=== PATIENT | female | born 1990 | race Caucasian/White ===

== ENCOUNTER 2018-03-14 00:50 | Emergency (ER) | payer MEDICAID, SELFPAY ==
[2018-03-14 00:51] VITALS: BP 119/78; PULSE 91; RESP 14; TEMP 36.8; O2SAT 97; BMI 29.7
--- NOTE | 2018-03-14 00:56 | ED.DEP ---
ED Disposition - Plan for ED Patient: Chief Complaint: Ear Problem Instructions: ED Otitis Media Acute Adult Prescriptions: Amoxicillin 500 mg PO TID #30 tablet Referrals: Care Physician,No Primary [Primary Care Provider] - Anat Parry MD [STAFF PHYSICIAN] -
--- NOTE | 2018-03-14 01:00 | ED.DCSUM_ITS ---
- ER Visit Summary Date of Service: 03/14/18 Chief Complaint: Right ear pain History of Present Illness: The patient is a 27 F presented with right ear pain. Patient states it started 3 days ago. She has tried ibuprofen at home. She denies any recent swimming. Denies fever. She states the pain radiates to the right side of her neck. No other complaints. Physical Examination: Vitals are stable. Patient is afebrile. Alert no acute distress. HEENT exam pharynx is normal, uvula midline. Right TM erythema and bulging. Left TM is normal. No mastoid tenderness. Neck is supple. No meningismus Lungs are clear and equal bilaterally. Heart is regular rate and rhythm. Abdomen is soft nontender nondistended. Extremities are unremarkable. Skin is warm and dry. No rash Remainder of exam is unremarkable. Emergency Department Course and Treatment: Patient is given amoxicillin. Advised to follow-up with Dr. Parry occupational therapy asst for no doc. Advised return to ED for worsening complaints. Disposition: Discharge home Impression: Right otitis media This note was generated with [employer] dictation software. It may contain incorrect words, spelling, and punctuation that were not noted in review of the chart prior to signing ED Disposition - Plan for ED Patient: Chief Complaint: Ear Problem Instructions: ED Otitis Media Acute Adult Prescriptions: Amoxicillin 500 mg PO TID #30 tablet Referrals: Anat Parry MD [STAFF PHYSICIAN] - Care Physician,No Primary [Primary Care Provider] -
[2018-03-14] MEDS: AMOXICILLIN 500 MG CAPSULE PO (01:04)
== END 2018-03-14 01:29 | disposition home or self-care (01) ==
LOC: ED 01:11
PROVIDERS: Emergency Provider Emergency Medicine
DX: H66.91 Otitis media, unspecified, right ear (principal); Z72.0 Tobacco use
CPT/HCPCS: 99283

== ENCOUNTER 2018-05-02 15:01 | Emergency (ER) | payer MEDICAID, SELFPAY ==
[2018-05-02 15:03] VITALS: BP 120/72; PULSE 83; RESP 17; TEMP 36.9; O2SAT 100; BMI 28.3
--- NOTE | 2018-05-02 15:41 | ED.DCSUM_ITS ---
- ER Visit Summary Date of Service: 05/02/18 Chief Complaint: Laceration posterior left ankle History of Present Illness: The patient is a 27 F who presents with laceration lateral to the left Achilles tendon. She states the screen door hit the back of her ankle. Her last tetanus shot was at the age of 17. She denies paresthesia, anesthesia motors. She states she is able to ambulate. She has no other complaints. Physical Examination: Vital signs noted and are normal. There is a 6 cm laceration lateral the left Achilles tendon. The Achilles tendon is functionally intact. There is no palpable defect. The laceration is beveled and gaping. DP PT pulses are palpable. Test Results: None Emergency Department Course and Treatment: Adacel IM and suture repair of laceration. Wound was prepped draped sterile manner. The wound was anesthetized 1% lidocaine by local infiltration. The wound was irrigated with normal saline. Using 5-0 Ethilon horizontal interrupted sutures and simple interrupted sutures were placed. Treatment Plan: Wound care instructions Disposition: Discharged to home in stable improved condition Impression: 6 cm left posterior ankle laceration This note was generated with [employer] dictation software. It may contain incorrect words, spelling, and punctuation that were not noted in review of the chart prior to signing ED Disposition - Plan for ED Patient: Disposition: Home or Assisted Living Chief Complaint: Laceration Instructions: ED Laceration All Referrals: Care Physician,No Primary [Primary Care Provider] - Apurva Okeefe NP-C [NON-STAFF] - 10-14 Days suture removal Additional Instructions: Clean wound with peroxide and Q-tip 3 times a day then apply bacitracin ointment. Call for appointment to have sutures removed in 14 days.
[2018-05-02] MEDS: Diphth,Pertuss(Acell),Tet Vac 0.5 ML Vial IM (16:03)
== END 2018-05-02 17:08 | disposition home or self-care (01) ==
PROVIDERS: Emergency Provider Emergency Medicine
DX: S91.012A Laceration without foreign body, left ankle, initial encounter (principal); W22.8XXA Striking against or struck by other objects, initial encounter; Y93.9 Activity, unspecified; Y92.9 Unspecified place or not applicable; Y99.9 Unspecified external cause status; Z23 Encounter for immunization; Z72.0 Tobacco use
CPT/HCPCS: 12002; 90471; 90715; 99284

== ENCOUNTER 2018-09-24 17:31 | Emergency (ER) | payer MEDICAID, SELFPAY ==
[2018-09-24 17:31] VITALS: BP 121/71; PULSE 84; RESP 14; TEMP 36.9; O2SAT 98; BMI 27.7
--- NOTE | 2018-09-24 18:26 | ED.VIS.GEN ---
History of Present Illness Chief Complaint: Ear Problem Informant: Patient Onset: Days - 3 Context: Gradual Onset Timing: Continuous Quality: ache/sore Location: left ear, radiating into left jaw and throat Current Severity: Severe Maximum Severity: Severe Worsened by: touching ear Relieved by: nothing Associated Symptoms: decreased hearing left ear Narrative: No recent URI, nasal congestion, fevers or other systemic symptoms. No recent swimming. No discharge from the ear. No injury or foreign bodies to this area. Past Medical History - Allergies and Home Meds Allergies/Adverse Reactions: Allergies No Known Allergies Allergy (Verified 09/24/18 17:34) Primary Care Physician: Care Physician,No Primary [Primary Care Provider] - Past Medical History: None Smoking Status: Current every day smoker Drugs: None Review of Systems General: Denies: Chills, Fever Eyes: Denies: Visual changes - bilaterally, Diplopia ENT: Reports: Left ear pain, Sore throat. Denies: Rhinorrhea Respiratory: Denies: Dyspnea, Cough Gastrointestinal: Denies: Nausea, Vomiting Skin: Denies: Rash, Wounds Physical Exam Vital Signs/Narrative: Vital Signs Temp Pulse Resp BP Pulse Ox 09/24/18 17:31 98.4 F 84 14 121/71 H 98 Inital Vital Signs reviewed: Yes General: Well nourished, Well developed, No Acute Distress Head: Normocephalic, Atraumatic Eyes: Perrl, EOMI ENT: Moist mucous membranes, No rhinorrhea, TM's clear - left TM incompletely visualized due to pain w/ pulling left pinna and edematous EAC, but appears OK, - - left EAC erythemetous and swollen, but not tight. no discharge. very painful to manipulate tragus and pinna, which are normal-appearing. nml mastoid process. Neck: Supple, Nontender, No lymphadenopathy - including no palpable periauricular LAD. Skin: Normal color, No rash Neurological: Alert, Oriented x3, Cranial nerves II-XII grossly intact, Normal Strength, Normal Sensation Psychological: Normal affect, Normal Mood Diagnostic/Tx/Re-eval - Medical Decision Making We will treat as an otitis externa with topical Cortisporin otic drops which were given to the patient here. Appropriate discharge instructions given along with follow-up. ED Disposition - Plan for ED Patient: Disposition: Home or Assisted Living Diagnosis: Left otitis externa Instructions: ED Otitis Externa Referrals: Azeb Hickman [NON-STAFF] - 3-5 Days if not improving Additional Instructions: Use eardrops 4 drops into affected ear, 4 times daily for 5-7 days or until better.
[2018-09-24] MEDS: Neomycin Sulfate/Polymyxin/Hc Susp 10 ML Bottle 4 DRP OTIC (18:44)
--- NOTE | 2018-09-24 18:45 | ED.RN ---
DISCHARGE INSTRUCTIONS GIVEN TO AND REVIEWED WITH PATIENT, PATIENT DENIES QUESTIONS OR CONCERNS AND VOICES UNDERSTANDING OF DISCHARGE INSTRUCTIONS. PT AMBULATES OUT OF ROOM WITHOUT DIFFICULTY.
== END 2018-09-24 18:46 | disposition home or self-care (01) ==
PROVIDERS: Emergency Provider Emergency Medicine
DX: H60.92 Unspecified otitis externa, left ear (principal); F17.200 Nicotine dependence, unspecified, uncomplicated
CPT/HCPCS: 99282

== ENCOUNTER 2019-09-04 13:35 | Emergency (ER) | payer MEDICAID, SELFPAY ==
[2019-09-04 13:36] VITALS: BP 123/68; PULSE 68; RESP 16; TEMP 36.3; O2SAT 98; BMI 28.3
[2019-09-04] MEDS: Ondansetron 4 MG/2 ML Vial IV (14:19)
[2019-09-04] MEDS: 0.9% Normal Saline 1,000 ML 1000 ML IV (14:20)
[2019-09-04] MEDS: Dicyclomine 20 MG/2 ML Vial IM (14:21)
[2019-09-04 14:24] LABS: Absolute Lymphocyte Count 1.39 X10^3/uL (0.83-4.51); Absolute Neutrophil Count 12.3 X10^3/uL (2.0-7.7); Basophil# 0.03 X10^3/uL; Basophil% 0.2 % (0-1); Eosinophil# 0.04 X10^3/uL; Eosinophils% 0.3 % (0-5); Hematocrit 40.9 % (37-47); Hemoglobin 13.5 g/dL (12.0-15.0); Lymphocyte # 1.39 X10^3/ul (4.0); Lymphocyte % 9.7 % (19-41); Mean Corpuscular Hgb 30.1 pg (27.0-32.0); Mean Corpuscular Volume 91.3 fL (81-99); Monocyte# 0.63 X10^3/uL; Monocyte% 4.4 % (0-10); NRBC Flagged by Analyzer 0 % (0-5); Neutrophil # 12.25 X10^3/uL (2.7-7.7); Neutrophil % 85.1 % (47-70); Platelet Count 291 K/mm3 (150-450); RBC Distribution Width CV 12.7 % (11.6-14.6); RBC Distribution Width SD 42.7 fl (35.1-43.9); Red Blood Count 4.48 M/mm3 (4.2-5.4); White Blood Count 14.4 K/mm3 (4.4-11.0)
[2019-09-04 14:39] LABS: Anion Gap 5 (5-15); BUN 7 mg/dL (7-18); BUN/Creat Ratio 7.8 RATIO (10-20); Chloride 109 mmol/L (98-107); Creatinine, Serum 0.89 mg/dL (0.55-1.02); EST Glomerular Filtration Rate 81 mL/min (>60); Est Glom Filt Rate - Afr Amer 98 mL/min (>60); Estimated Creatinine Clearance 79.24 ml/min; Glucose 103 mg/dL (74-106); Potassium 3.9 mmol/L (3.5-5.1); Sodium Level 139 mmol/L (136-145)
--- NOTE | 2019-09-04 15:22 | ED.VISSUMM ---
- ER Visit Summary Date of Service: 09/04/19 Chief Complaint: [Vomiting and abdominal pain/diarrhea] History of Present Illness: The patient is a 28 F [presents the emergency department sudden onset of symptoms this morning while at work around 9:30 AM. Patient states that she started having abdominal cramping and then started vomiting and having watery stools. Patient states that she cannot keep anything down. She is vomited more than 10 times. Patient is also had at least 3 watery stools. She states that she has had multiple sick contacts at work with similar illness. She denies any fever or chills. Patient has no medical history. She is had no prior surgical history. She denies eating any undercooked or suspect foods. She denies recent antibiotic usage. She denies recent travel.] Physical Examination: [HEENT-PERRLA, EOMI. Cranial nerves II through XII grossly intact. TMs clear. Mucous membranes moist. No adenopathy. Cardiovascular-regular rate and rhythm without murmur or ectopy Lungs-clear to auscultation, chest wall stable without crepitus or subcu emphysema Abdomen-normoactive bowel sounds, soft, nontender, no rebound or rigidity, no peritoneal signs. Extremities-intact ?4, normal range of motion, normal pulses, atraumatic] Test Results: [CBC with hypotension and elevated white blood cell count of 14.4, hemoglobin 13, hematocrit 41, platelets 291. Chemistries unremarkable.] Emergency Department Course and Treatment: [Patient was given a liter of the same fluid bolus. Patient was given Zofran 4 mg IV. Patient given Bentyl 20 mg IM. Patient continues to complain of nausea and was given Phenergan 12.5 mg IV. Patient's abdominal pain improved significantly.] Treatment Plan: [Patient will be given a prescription for Phenergan. Patient will be given a prescription for Bentyl. Patient advised to push fluids. Patient advised to follow-up with primary care physician in 3 to 5 days. She is advised to return if persistent vomiting, diarrhea, dehydration, or conditions worsen anyway.] Disposition: [Discharged home in stable condition] Impression: [Viral gastroenteritis] This note was generated with [employer] software. It may contain incorrect words, spelling, and punctuation that were not noted in review of the chart prior to signing ED Disposition - Plan for ED Patient: Referrals: Care Physician,Jina Primary [Primary Care Provider] -
[2019-09-04] MEDS: proMETHazine 25 MG/ML Syringe 12.5 MG IV (15:36)
--- NOTE | 2019-09-04 15:45 | DCINST.ED_ITS ---
ED Disposition - Plan for ED Patient: Instructions: GASTROENTERITIS, Viral (8y-Adult) Prescriptions: Dicyclomine HCl [Bentyl] 20 mg PO TIDAC #20 cap Transmission Status: Pending to [facility] #30 proMETHazine tablet [Phenergan] 25 mg PO Q6H PRN PRN #10 tab PRN Reason: Nausea Transmission Status: Pending to [facility] #30 Referrals: Care Physician,No Primary [Primary Care Provider] - Asher Salgado MD [STAFF PHYSICIAN] - 3-5 Days
== END 2019-09-04 16:11 | disposition home or self-care (01) ==
LOC: ED 14:13
PROVIDERS: Emergency Provider Emergency Medicine
DX: A08.4 Viral intestinal infection, unspecified (principal); I95.9 Hypotension, unspecified; D72.829 Elevated white blood cell count, unspecified; Z72.0 Tobacco use
CPT/HCPCS: 80048; 85025; 96361; 96372; 96374; 96375; 99283; J7030; J2405

== ENCOUNTER 2019-12-24 09:13 | Emergency (ER) | payer MEDICAID, SELFPAY ==
[2019-12-24 09:13] VITALS: BP 141/73; PULSE 106; RESP 16; TEMP 36.3; O2SAT 100; BMI 31.6
--- NOTE | 2019-12-24 09:25 | ED.VISSUMM ---
- ER Visit Summary Date of Service: 12/24/19 Chief Complaint: Bilateral ear pain History of Present Illness: The patient is a 29 F who presents with bilateral ear pain that is been intermittent for the past 2 days. Patient states the pain is sharp. Patient states the pain lasts for approximately 1 minute. Patient states the left is worse than the right. Patient states the pain improves when she turns her head and she feels her ears pop. Patient admits to some decreased hearing from both ears. Patient denies any fevers or chills. Patient does admit to a mild sore throat. Patient denies any cough or shortness of breath. Physical Examination: Vital signs are stable. Patient is afebrile. Patient is in no acute distress. Oral mucosa is pink and moist. Neck is supple. Trachea is midline. There is no JVD. Tympanic membranes are clear bilaterally. There is edema and erythema of the external auditory canals bilaterally, worse on the left. There is some mild anterior cervical lymphadenopathy. Heart was regular rate and rhythm. Lungs are clear and equal bilaterally. Abdomen is soft. Bowel sounds are normal. There is no tenderness. Cranial nerves II through XII are intact. There are no focal motor or sensory deficits. Emergency Department Course and Treatment: Patient was given prescription for Cipro HC otic suspension. Patient was instructed to follow-up with her primary care physician in 5 to 7 days. Patient understood and was agreeable with the plan. All questions were answered. Disposition: Discharge home Impression: Bilateral otitis externa This note was generated with [employer] dictation software. It may contain incorrect words, spelling, and punctuation that were not noted in review of the chart prior to signing ED Disposition - Plan for ED Patient: Disposition: Home or Assisted Living Diagnosis: Bilateral otitis externa Instructions: ED Otitis Externa Prescriptions: Ciprofloxacin/Hydrocortisone [Cipro Hc Otic Suspension] 10 ml OT 4X/DAY #4 drops.susp Prescription Printed Referrals: Care Physician,No Primary [Primary Care Provider] - Prasad Wilde MD [STAFF PHYSICIAN] - 5-7 Days
[2019-12-24 09:43] VITALS: PULSE 89; RESP 16
--- NOTE | 2019-12-24 09:44 | ED.RN ---
THIS NURSE REVIEWED D/C INSTRUCTIONS WITH PT. PT VERBALIZED UNDERSTANDING OF INSTRUCTIONS. PT DENIES FURTHER NEEDS OR QUESTIONS AT THIS TIME. PT AMBULATES FROM ROOM ON OWN WITHOUT ASSISTANCE FROM STAFF
== END 2019-12-24 09:44 | disposition home or self-care (01) ==
PROVIDERS: Emergency Provider Emergency Medicine
DX: H60.93 Unspecified otitis externa, bilateral (principal); J02.9 Acute pharyngitis, unspecified; Z72.0 Tobacco use
CPT/HCPCS: 99282

== ENCOUNTER 2020-01-17 16:20 | Emergency (ER) | payer MEDICAID, SELFPAY ==
[2020-01-17 16:21] VITALS: BP 125/46; PULSE 95; RESP 17; TEMP 36.6; O2SAT 100; BMI 31.1
--- NOTE | 2020-01-17 16:34 | US_ITS ---
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 TECHNICAL QUALITY: Adequate. COMPARISON: None. FINDINGS: Liver: The liver measures 15.6 cm. There is normal echogenicity of the liver. The bile ducts are within normal limits. There is hepatic color flow. The direction of portal flow is hepatopetal. There is no demonstrated mass lesion. Gallbladder: Normal distended gallbladder. The gallbladder wall measures 2.0 mm. There is no pericholecystic fluid. There are no gallstones. Common Bile Duct (C.B.D.): The common bile duct measures 4 mm. Pancreas: Unremarkable visualized aspects of the pancreas. There is normal echogenicity of the pancreas. There is no demonstrated pancreatic mass or cyst. Right Kidney: Normal size of the right kidney. The right kidney measures 10.3 x 4.6 x 3.9 cm. Normal renal cortex. The right cortex measures 1.5 cm. There is no demonstrated renal mass or cyst. There is no right hydronephrosis. US/Gallbladder IMPRESSION: No demonstrated acute or significant process of the right upper quadrant ultrasound examination. Electronically Signed: Cem Najera MD at 17:41 EDT , Service support ,
--- NOTE | 2020-01-17 16:34 | ED.DCSUM_ITS ---
History of Present Illness Informant: Patient - Abdominal Pain/Flank Pain Onset: Today Context: Sudden Onset Timing: Continuous Quality: Sharp Location: RUQ Current Severity: Severe Maximum Severity: Severe Worsened by: Food Relieved by: Remaining Still - Nausea/Vomiting/Emesis GI Symptom: Nausea, Vomiting Onset: Yesterday Quality: Nonbilious Severity: Severe Episodes: 3 - Diarrhea/Melena/Hematochezia GI Symptom: Negative for: Diarrhea, Melena, Hematochezia Associated Symptoms: Negative for: Dysuria, Frequency, Hematuria, Urgency LMP: unknown Narrative: 29-year-old female history of GERD presents to the emergency department with right upper quadrant abdominal pain. It started about an hour ago after she had a handful of peanuts at work. It is a sharp stabbing pain that radiates to her right flank. She has had 2 episodes of nonbloody emesis. No hematemesis or coffee-ground emesis. She is not having chest pain or shortness of breath. She has been urinating normally today. Denies hematuria. She has not been lightheaded or dizzy. No fevers. She is on control and does not have regular menstrual cycles. She denies any vaginal bleeding or discharge. She is not on medicines for GERD. No history of abdominal surgery. No sick contacts. Prior similar symptoms: No Recent Illness/Hospitalization: No <Cecilio Camarena - Last Filed: 01/17/20 16:34> <Sloan Maki - Last Filed: 01/17/20 20:01> Chief Complaint: Abd Pain Past Medical History Prior records reviewed: Yes Past Medical History: None Surgical History: no surgical history Lives: With Family Smoking Status: Current every day smoker Alcohol: Occasional Drugs: None <Cecilio Camarena - Last Filed: 01/17/20 16:34> <Sloan Maki - Last Filed: 01/17/20 20:01> - Allergies and Home Meds Allergies/Adverse Reactions: Allergies No Known Allergies Allergy (Verified 01/17/20 16:21) Primary Care Physician: Care Physician,No Primary [Primary Care Provider] - Review of Systems All systems negative except as indicated General: Denies: Chills, Fever, Sweats Eyes: Denies: Visual changes - bilaterally, Diplopia ENT: Denies: Rhinorrhea, Sore throat Cardiovascular: Denies: Chest pain, Palpitations Respiratory: Denies: Dyspnea, Cough, Dyspnea on exertion Gastrointestinal: Reports: Abdominal pain, Nausea, Vomiting. Denies: Diarrhea, Constipation, Melena, Hematochezia Genitourinary: Denies: Dysuria, Hematuria, Frequency Musculoskeletal: Denies: Neck pain, Back pain, Swelling, Extremity Pain Skin: Denies: Rash, Wounds Neurological: Denies: Headache, Weakness, Numbness <Cecilio Camarena - Last Filed: 01/17/20 16:34> Physical Exam Vital Signs/Narrative: Vital Signs Temp Pulse Resp BP Pulse Ox 01/17/20 16:21 97.9 F 95 17 125/46 H 100 Inital Vital Signs reviewed: Yes General: Well nourished, Well developed, No Acute Distress Head: Normocephalic, Atraumatic Eyes: Perrl, EOMI ENT: Moist mucous membranes, No rhinorrhea Neck: Supple, Nontender Cardiovascular: Regular rate, Regular rhythm, No murmurs Respiratory: No distress, CTA bilaterally, Chest nontender Abdomen: Soft, Nondistended, Normal bowel sounds, Tender - RUQ TTP. . Negative for: Guarding, Rebound tenderness Back: Nontender, Normal Inspection. Negative for: CVA tenderness Extremities: Nontender, No edema Skin: Normal color, No rash Neurological: Alert, Oriented x3, Cranial nerves II-XII grossly intact, Normal Strength, Normal Sensation Psychological: Normal affect, Normal Mood <Cecilio Camarena - Last Filed: 01/17/20 16:34> Vital Signs/Narrative: Vital Signs Temp Pulse Resp BP Pulse Ox 01/17/20 16:21 97.9 F 95 17 125/46 H 100 <Sloan Maki - Last Filed: 01/17/20 20:01> Diagnostic/Tx/Re-eval - Medical Decision Making Evaluate the patient with our physician certified pharmacist assistant. Patient presents with sudden onset of right upper quadrant abdominal pain within the last hour or so. This occurred after she ate peanuts. She denies any prior history. No prior abdominal surgery. Is on control. She denies any fever or chills. She denies any dysuria. She denies any back pain. Young female actively nauseated in the room. Vital signs are stable afebrile. HEENT exam unremarkable. Lungs clear to auscultation bilaterally. Heart regular rhythm no murmur. Abdomen soft. Nondistended. Normal bowel sounds. Only tenderness is in the right upper quadrant. There is no organomegaly or masses. Right lower quadrant is unremarkable. No hernias. No obstruction. Patient is moving all 4 extremities. Neurovascular intact. No edema. Neurologically she is awake and alert. Patient be treated with IV nausea medications and morphine. Labs will be obtained along with a right upper quadrant ultrasound. Differential diagnosis would include acute cholecystitis, biliary colic versus other etiologies. CBC was elevated 20,000 normal hemoglobin of 14 and no bands. Electrolytes unremarkable liver enzymes basically unremarkable slightly elevated AST and ALT just above normal. Initial lipase was elevated at 536 but was repeated and actually came down the 511. Not consistent with acute pancreatitis. UA was normal. They could not do the micro but otherwise was unremarkable and again had no urinary symptoms. Ultrasound of the right upper quadrant showed no acute abnormality. No obstruction of the gallbladder. No stones. No pericholecystic fluid. And no wall edema. Multiple repeat exams patient began to improve. She was treated with pain medication morphine and several doses of Zofran. She also received Phenergan and started showing significant improvement with that. On repeat exam at 1950 5 PM she feels much better. Feels comfortable being discharged home. I do not think she needs CAT scan imaging because the only tenderness is in the right upper quadrant. She does not have a [place] sign. Clinically this is not appendicitis or colitis. She and I discussed all of her test results. She has no primary care physician. She will be referred to [facility] practice group for repeat evaluation. She knows to return if worse. She will be written for Zofran for nausea. Impression: Acute right upper quadrant abdominal pain of uncertain etiology Leukocytosis <Sloan Maki - Last Filed: 01/17/20 20:01> ED Disposition <Cecilio Camarena - Last Filed: 01/17/20 16:34> <Sloan Maki - Last Filed: 01/17/20 20:01> - Plan for ED Patient: Referrals: Care Physician,No Primary [Primary Care Provider] -
[2020-01-17 16:53] LABS: Absolute Lymphocyte Count 3.17 X10^3/uL (0.83-4.51); Absolute Neutrophil Count 15.9 X10^3/uL (2.0-7.7); Basophil# 0.04 X10^3/uL; Basophil% 0.2 % (0-1); Eosinophil# 0.18 X10^3/uL; Eosinophils% 0.9 % (0-5); Hematocrit 43.1 % (37-47); Hemoglobin 14.3 g/dL (12.0-15.0); Lymphocyte # 3.17 X10^3/ul (4.0); Lymphocyte % 15.4 % (19-41); Mean Corp Hgb Conc 33.2 g/dL (32-36); Mean Corpuscular Hgb 30.8 pg (27.0-32.0); Mean Corpuscular Volume 92.7 fL (81-99); Monocyte% 5.8 % (0-10); NRBC Flagged by Analyzer 0 % (0-5); Neutrophil # 15.92 X10^3/uL (2.7-7.7); Neutrophil % 77.3 % (47-70); Platelet Count 326 K/mm3 (150-450); RBC Distribution Width SD 44.1 fl (35.1-43.9); Red Blood Count 4.65 M/mm3 (4.2-5.4); White Blood Count 20.6 K/mm3 (4.4-11.0)
[2020-01-17] MEDS: Ondansetron 4 MG/2 ML Vial IV ×2 (17:08→17:57)
[2020-01-17] MEDS: Morphine 4 MG/ML Syringe IV ×2 (17:08→17:57)
[2020-01-17] MEDS: 0.9% Normal Saline 1,000 ML 1000 ML IV (17:08)
[2020-01-17 17:16] LABS: Internal QC Validated? YES +Cl - CLEAR BKGD; Pregnancy, Serum, hCG Quali. NEGATIVE Negative
[2020-01-17 17:18] LABS: AST(SGOT) 43 U/L (15-37); Alanine Aminotransfer ALT/SGPT 94 U/L (13-56); Albumin, Serum 4.2 g/dL (3.2-5.0); Alkaline Phosphatase 82 U/L (45-117); Anion Gap 5 (5-15); BUN 10 mg/dL (7-18); BUN/Creat Ratio 12.6 RATIO (10-20); Calcium,Total 9.1 mg/dL (8.5-10.1); Chloride 107 mmol/L (98-107); EST Glomerular Filtration Rate 92 mL/min (>60); Est Glom Filt Rate - Afr Amer 111 mL/min (>60); Estimated Creatinine Clearance 87.38 ml/min; Globulin 4.4 g/dL (2.2-4.2); Glucose 98 mg/dL (74-106); Lipase 536 U/L (73-393); Potassium 4.9 mmol/L (3.5-5.1); Protein, Total 8.6 g/dL (6.4-8.2); Sodium Level 135 mmol/L (136-145)
[2020-01-17 17:27] LABS: Mucous, Urine 0 SEEN /hpf (<or=2+); Red Blood Cells-Urine 0 SEEN /hpf (0-5)
[2020-01-17 18:02] VITALS: BP 147/84; PULSE 77; RESP 18; O2SAT 98
[2020-01-17 18:14] LABS: Color, Urine Yellow (Yellow); Glucose, Dipstick Normal (Normal); Ketone-Dipstick 5 mg/dl (Negative); Leukocyte Esterase-Dipstick Negative /ul (Negative); Nitrite-Dipstick Negative (Negative); Occult Blood-Urine Negative /ul (Negative); Urine Bilirubin Dipstick Negative (Negative)
[2020-01-17] MEDS: proMETHazine 25 MG/ML Syringe 12.5 MG IV (18:32)
[2020-01-17 19:22] LABS: Lipase 511 U/L (73-393)
--- NOTE | 2020-01-17 20:01 | ED.DEP ---
ED Disposition - Plan for ED Patient: Disposition: Home or Assisted Living Instructions: ED Abdominal Pain Unkn Cause Fem Prescriptions: Ondansetron [Zofran Odt] 4 mg PO Q8H PRN PRN #10 tab PRN Reason: Nausea Prescription Printed Referrals: Prasad Wilde MD [STAFF PHYSICIAN] - 3-5 Days Additional Instructions: Plenty of fluids and rest increase diet slowly as tolerated. Zofran as needed for nausea. Tylenol and/or Motrin for pain. Follow-up with the referred primary care physician if not improving and to be reevaluated. Return emergency department if increasing pain, intractable vomiting or fever. Your ultrasound was negative and did not see any gallstones or infection of your gallbladder.
[2020-01-17 20:12] VITALS: BP 128/84; PULSE 69; RESP 18; O2SAT 99
[2020-01-17 20:15] LABS: Urine Clarity Sl Cldy (Clear)
[2020-01-17 20:16] LABS: Protein-Dipstick Negative (Negative); Urine Urobilinogen Normal (Normal)
[2020-01-17 20:17] LABS: White Blood Cells 0-5 SEEN /hpf (0-5)
[2020-01-17 20:18] LABS: Bacteria 1+ /hpf (None Seen); Squamous Epithelial Cells - UA 10-25 SEEN /hpf (5-10)
[2020-01-17 20:19] LABS: Calcium Oxalate Crystals Ur 2+ /hpf (<or=2+)
== END 2020-01-17 20:20 | disposition home or self-care (01) ==
PROVIDERS: Physician Assistant Medical; Emergency Provider Emergency Medicine
DX: R10.11 Right upper quadrant pain (principal); D72.829 Elevated white blood cell count, unspecified; R11.0 Nausea; K21.9 Gastro-esophageal reflux disease without esophagitis; F17.200 Nicotine dependence, unspecified, uncomplicated; Z79.3 Long term (current) use of hormonal contraceptives
CPT/HCPCS: 76705; 80053; 81001; 83690; 84703; 85025; 96361; 96374; 96375; 96376; 99283; J7030; A4216; J2405

== ENCOUNTER 2020-09-22 09:08 | Emergency (ER) | payer MEDICAID, SELFPAY ==
[2020-09-22 09:08] VITALS: BP 121/79; PULSE 87; RESP 16; TEMP 36.6; O2SAT 100; BMI 24.0
--- NOTE | 2020-09-22 09:30 | CT_ITS ---
STUDY: CT BRAIN WITHOUT CONTRAST REASON FOR EXAM: Female, 29 years old. Head injury, fell in shower, nausea, unknown LOC. RADIATION DOSAGE (If Supplied By Facility): CTDIvol = ( 44.99 ) mGy, DLP = ( 745.49 ) mGycm TECHNIQUE: Transaxial CT imaging of the brain was performed without administration of intravenous contrast material. Individualized dose optimization techniques were used for this CT. COMPARISON: No relevant priors. FINDINGS: Normal soft tissue structures. Normal calvarium. Normal size ventricles and extra-axial spaces for the patient''s age. Normal white matter tracts of the cerebral hemispheres. Normal basal ganglia and thalami. Normal brainstem. Normal cerebellum. There is no intracranial hemorrhage. There are no findings of an acute ischemic infarction. Normal visualized paranasal sinuses. CT/Brain/Head without Contrast IMPRESSION: Normal unenhanced CT scan of the brain. Electronically Signed: Rafy Greer MD at 9:51 EST , Service support ,
[2020-09-22] MEDS: Ondansetron ODT 4 MG Tablet 8 MG PO (09:34)
--- NOTE | 2020-09-22 09:47 | ED.VIS.FALL ---
History of Present Illness Chief Complaint: Fall Informant: Patient, Significant Other Occurred: Today - around 3 hrs prior to arrival Mechanism/Context: Same level fall, Slip - in shower Location: posterior head Quality of Pain: Aching Current Severity: Moderate Maximum Severity: Moderate Worsened by: light Relieved by: nothing. took ibuprofen [employer]. Associated Symptoms: Negative for: Parasthesias, Weakness, Loss of function, Inability to ambulate, Loss of consciousness, Amnesia Narrative: Patient states she slipped in the shower accidentally and hit the back of her head on a small shelf in their shower. Patient did not lose consciousness but she was dazed, she has had nausea and vomiting as well as a headache and some globally blurry vision. She denies any peripheral neurologic symptoms but her significant other states that when she walks she has been a little off balance. She did not have any other injury. She denies any pain in her neck or numbness in her extremities when she turns her head which she is able to do. There has been no rhinorrhea or otorrhea. She takes no anticoagulants or antiplatelets but she did take some ibuprofen prior to coming. Past Medical History - Allergies and Home Meds Allergies/Adverse Reactions: Allergies No Known Allergies Allergy (Verified 09/22/20 09:10) Primary Care Physician: Care Physician,No Primary [Primary Care Provider] - Past Medical History: None Surgical History: no surgical history Lives: Spouse/ Significant Other Smoking Status: Current every day smoker Review of Systems General: Reports: Malaise. Denies: Chills, Fever, Sweats Eyes: Reports: Blurred Vision - bilaterally. Denies: Diplopia ENT: Denies: Bilateral ear pain, Rhinorrhea, Sore throat Cardiovascular: Denies: Chest pain, Palpitations Respiratory: Denies: Dyspnea, Cough, Dyspnea on exertion Gastrointestinal: Reports: Nausea, Vomiting. Denies: Abdominal pain, Diarrhea, Melena, Hematochezia Genitourinary: Denies: Dysuria, Hematuria, Frequency Musculoskeletal: Denies: Neck pain, Back pain, Extremity Pain Skin: Denies: Rash, Wounds Neurological: Reports: Headache. Denies: Weakness, Numbness Physical Exam Vital Signs/Narrative: Vital Signs Temp Pulse Resp BP Pulse Ox 09/22/20 09:08 97.8 F 87 16 121/79 H 100 Inital Vital Signs reviewed: Yes General: Well nourished, Well developed, - - Keenly alert, no distress but appears to not feel well Head: Normocephalic, Trauma - Occipital swelling without boggy hematoma or evidence on skin of trauma but patient has a lot of hair limiting the exam here, Tenderness - Occiput Eyes: Perrl, EOMI, - - Mild photophobia ENT: TM's clear, No hemotympanum or drainage, No trauma. Negative for: Otorrhea, Nasal trauma Neck: Nontender, Full ROM Cardiovascular: Regular rate, Regular rhythm, No murmurs Respiratory: No distress, CTA bilaterally, Chest nontender Abdomen: Soft, Nontender, Nondistended Back: Nontender. Negative for: Spinal Tenderness Extremeties: Atraumatic, full range of motion throughout all 4 extremities Skin: Normal color, No rash, Trauma - Occipital scalp, see above Neurological: Alert, Oriented x3, Cranial nerves II-XII grossly intact, Normal Strength, Normal Sensation Psychological: Normal affect, Normal Mood Diagnostic/Tx/Re-eval Clinical Impression(s) from Imaging Studies Brain CT 09/22/20 09:30 IMPRESSION: Normal unenhanced CT scan of the brain. Electronically Signed: Rafy Greer MD at 9:51 EST , Service support , - Medical Decision Making Patient was given Zofran and sent to CT which is negative as above. No intracranial bleeding or skull fracture, the soft tissue swelling in the occipital scalp is noted by my interpretation of the images with no associated bony fracture. Patient is reassured, given Tylenol in addition to a prescription for Zofran and appropriate concussion instructions as well as a work note. Follow-up if symptoms not resolved after 1 week of rest. Patient states she does not have a PCP, she was referred to the next doctor on the unassigned list Dr. Oliver and the patient states that she had actually been trying to get a PCP with the [facility] anyway. ED Disposition - Plan for ED Patient: Disposition: Home or Assisted Living Diagnosis: Concussion without loss of consciousness, initial encounter, Fall from slipping on slippery surface Instructions: ED Concussion Prescriptions: Ondansetron [Zofran Odt] 8 mg PO Q8H PRN PRN #20 tab PRN Reason: Nausea Transmission Status: Pending to [id number] Referrals: Ronnie Oliver, [NON CLINICAL AFFILIATE] - 1 Week if not improving
[2020-09-22] MEDS: Acetaminophen 325 MG Tablet 650 MG PO (10:08)
--- NOTE | 2020-09-22 10:11 | ED.RN ---
DISCHARGE INSTRUCTIONS GIVEN TO AND REVIEWED WITH PATIENT, PATIENT DENIES QUESTIONS OR CONCERNS AND VOICES UNDERSTANDING OF DISCHARGE INSTRUCTIONS. PT AMBULATES OUT OF ROOM WITHOUT DIFFICULTY.
== END 2020-09-22 10:11 | disposition home or self-care (01) ==
LOC: ED 10:05
PROVIDERS: Emergency Provider Emergency Medicine
DX: S06.0X0A Concussion without loss of consciousness, initial encounter (principal); W18.2XXA Fall in (into) shower or empty bathtub, initial encounter; Y93.E1 Activity, personal bathing and showering; Y92.9 Unspecified place or not applicable; Y99.9 Unspecified external cause status; F17.200 Nicotine dependence, unspecified, uncomplicated
CPT/HCPCS: 70450; 99283

== ENCOUNTER 2020-09-23 20:02 | Emergency (ER) | payer MEDICAID, SELFPAY ==
[2020-09-22 09:08] VITALS: BMI 24.0
[2020-09-23 20:03] VITALS: BP 138/87; PULSE 105; RESP 20; TEMP 36.7; O2SAT 100; BMI 27.3
--- NOTE | 2020-09-23 20:30 | CT_ITS ---
STUDY: CT BRAIN WITHOUT CONTRAST REASON FOR EXAM: Female, 29 years old. CARRILLO WITH LEG WEAKNESS AND TINGLING, PT FELL YESTERDAY IN SHOWER AND WAS SEEN, TODAY NECK PAIN RADIATION DOSAGE (If Supplied By Facility): CTDIvol = ( 44.99 ) mGy, DLP = ( 762.36 ) mGycm TECHNIQUE: Transaxial CT imaging of the brain was performed without administration of intravenous contrast material. Individualized dose optimization techniques were used for this CT. COMPARISON: Head CT dated September 22, 2019 FINDINGS: Normal soft tissue structures. Normal calvarium. No visualized skull fractures. No hemorrhagic contusions of the brain parenchyma are present. Normal size ventricles and extra-axial spaces for the patient''s age. Normal white matter tracts of the cerebral hemispheres. Normal basal ganglia and thalami. Normal brainstem. Normal cerebellum. There is no intracranial hemorrhage. There are no findings of an acute ischemic infarction. Normal visualized paranasal sinuses. CT/Brain/Head without Contrast IMPRESSION: Negative unenhanced CT scan of the brain. Electronically Signed: Cem Najera MD at 22:05 EST , Service support ,
--- NOTE | 2020-09-23 20:30 | RAD_ITS ---
STUDY: X-RAY - LEFT SHOULDER REASON FOR EXAM: Female, 29 years old. Injury. Pain after fall yesterday. TECHNIQUE: 4 view(s) of the shoulder. COMPARISON: None. FINDINGS: Normal glenohumeral articulation. Normal acromioclavicular joint. Normal acromion. There is no acute fracture, dislocation or destructive osseous pathology. Normal humeral head and visualized proximal humerus. The soft tissue structures are unremarkable. Normal visualized pulmonary apex. RAD/Shoulder min 2 Views IMPRESSION: Normal x-ray examination of the left shoulder. Electronically Signed: Jared Matos DO at 21:47 EST Tel [phone], Service support ,
--- NOTE | 2020-09-23 20:30 | CT_ITS ---
STUDY: CT CERVICAL SPINE WITHOUT CONTRAST REASON FOR EXAM: Female, 29 years old. CARRILLO WITH LEG WEAKNESS AND TINGLING, PT FELL YESTERDAY IN SHOWER AND WAS SEEN, TODAY NECK PAIN RADIATION DOSAGE (If Supplied By Facility): CTDIvol = ( 19.17 ) mGy, DLP = ( 410.57 ) mGycm TECHNIQUE: High resolution transaxial imaging was performed without contrast material. Sagittal and coronal images were reconstructed. Individualized dose optimization techniques were used for this CT. COMPARISON: None FINDINGS: Normal craniovertebral junction. Normal anterior atlantoaxial articulation. Normal odontoid process. Normal cervical lordosis. Normal vertebral bodies and posterior osseous elements. No visualized acute fracture or compression deformity. Normal endplates. Normal disc height and morphology. Normal central canal and intervertebral neuroforamina. Normal visualized soft tissue structures. CT/Spine Cervical without Contras IMPRESSION: Normal unenhanced CT examination of the cervical spine. Electronically Signed: Cem Najera MD at 22:14 EST , Service support ,
[2020-09-23] MEDS: 0.9% Normal Saline 1,000 ML 1000 ML IV (20:43)
[2020-09-23] MEDS: Acetaminophen 500 MG Tablet 1000 MG PO (20:43)
[2020-09-23 20:53] LABS: Absolute Lymphocyte Count 3.02 X10^3/uL (0.83-4.51); Absolute Neutrophil Count 4.4 X10^3/uL (2.0-7.7); Basophil# 0.04 X10^3/uL; Basophil% 0.5 % (0-1); Eosinophil# 0.14 X10^3/uL; Eosinophils% 1.7 % (0-5); Hematocrit 43.2 % (37-47); Hemoglobin 14.7 g/dL (12.0-15.0); Lymphocyte # 3.02 X10^3/ul (4.0); Lymphocyte % 36.1 % (19-41); Mean Corpuscular Hgb 30.6 pg (27.0-32.0); Mean Platelet Vol. 8.8 fl (6.2-12.0); Monocyte# 0.73 X10^3/uL; Monocyte% 8.7 % (0-10); NRBC Flagged by Analyzer 0 % (0-5); Neutrophil # 4.41 X10^3/uL (2.7-7.7); Neutrophil % 52.8 % (47-70); Platelet Count 342 K/mm3 (150-450); RBC Distribution Width CV 12.6 % (11.6-14.6); RBC Distribution Width SD 42.1 fl (35.1-43.9); White Blood Count 8.4 K/mm3 (4.4-11.0)
[2020-09-23 21:05] LABS: Internal QC Validated? YES +Cl - CLEAR BKGD; Pregnancy, Serum, hCG Quali. NEGATIVE Negative
[2020-09-23 21:10] LABS: Anion Gap 5 (5-15); BUN 12 mg/dL (7-18); BUN/Creat Ratio 12.4 RATIO (10-20); Calcium,Total 8.9 mg/dL (8.5-10.1); Chloride 107 mmol/L (98-107); Creatinine, Serum 0.97 mg/dL (0.55-1.02); EST Glomerular Filtration Rate 73 mL/min (>60); Est Glom Filt Rate - Afr Amer 88 mL/min (>60); Estimated Creatinine Clearance 72.07 ml/min; Glucose 88 mg/dL (74-106); Potassium 3.8 mmol/L (3.5-5.1); Sodium Level 138 mmol/L (136-145)
--- NOTE | 2020-09-23 21:23 | RAD_ITS ---
STUDY: X-RAY CHEST REASON FOR EXAM: Female, 29 years old. Fall yesterday. Weakness. TECHNIQUE: Single AP portable view of the chest. PA chest and left RIBS, 06/11/2013. COMPARISON: None. FINDINGS: The lungs are clear and expanded. There is no demonstrated pleural abnormality. Normal size heart. Normal mediastinum and anabel. Normal visualized pulmonary arteries. Normal visualized aortic arch and descending thoracic aorta. Normal visualized thoracic spine. Normal visualized ribs, clavicles, and shoulders. There is no demonstrated abnormality of the visualized soft tissue structures of the upper abdomen. RAD/Chest 1 View (Portable) IMPRESSION: No acute cardiopulmonary disease or major interval change. Electronically Signed: Jared Matos DO at 21:46 EST Tel [phone], Service support ,
--- NOTE | 2020-09-23 21:37 | ED.VISSUMM ---
- ER Visit Summary Date of Service: 09/23/20 Chief Complaint: Head injury History of Present Illness: The patient is a 29 F who has been referred to Dr. Oliver. Reports that yesterday she fell in shower and hit the back of her head on the soap dish. She did not have a loss of consciousness. She was seen in the emerge department yesterday and had a CT that was negative. However, she complains that she has neck pain is 9 out of 10 in severity and paresthesias in her left arm and right hand that come and go. Patient also reports that the fingers of both hands have been black. Patient complains of pain with movement of her jaw to the left. She denies malocclusion or loose teeth. She complains of a lump to the upper left chest and generalized weakness as well. Physical Examination: Vitals: Stable. Afebrile. Head: Severe tenderness palpation over the occipital region. No appreciable hematoma. Neck: Mild diffuse tenderness palpation over her entire C-spine. No point tenderness. Full ROM without difficulty. Cleared by NEXUS criteria. Back: No vertebral tenderness. General: A&O x 3. NAD. Cardiovascular exam: Regular rate and rhythm, no murmur, rub or gallop. Respiratory exam: Moderate tenderness palpation over the anterior surface of her left chest just inferior to her clavicle. No crepitus. Clear to auscultation bilaterally. No wheezes or stridor. Abdominal exam: Soft, nontender, nondistended, normal bowel sounds. No pain in RUQ or LUQ specifically. No peritoneal signs. Extremity: Mild tenderness palpation over the left deltoid. However, she has full range of motion of her left shoulder without any difficulty. Patient reports decrease sensation to light touch in her left arm diffusely. This is not in an anatomic distribution. 5 out of 5 insurance operations rep bilaterally. Normal median, ulnar, and radial nerve function in motor distributions. 2+ radial pulses bilaterally. Psych: Depressed and anxious. Test Results: CBC is normal. Chem-7 is normal. test is negative. Left shoulder x-ray shows no acute disease. Clinical Impression(s) from Imaging Studies Brain CT 09/23/20 20:30 IMPRESSION: Negative unenhanced CT scan of the brain. Electronically Signed: Cem Najera MD at 22:05 EST , Service support , Cervical Spine CT 09/23/20 20:30 IMPRESSION: Normal unenhanced CT examination of the cervical spine. Electronically Signed: Cem Najera MD at 22:14 EST , Service support , Chest X-Ray 09/23/20 21:23 IMPRESSION: No acute cardiopulmonary disease or major interval change. Electronically Signed: Jared Matos DO at 21:46 EST Tel [phone], Service support , Emergency Department Course and Treatment: Patient was treated with Tylenol. She was reassured at this time that I do not see a life-threatening cause for her symptoms. Treatment Plan: Patient certainly has a concussion. She will be discharged instructions to follow-up Dr. Oliver 1 week for another exam. Concussion precautions were given. Return to the emergency department for any worsening symptoms. Disposition: To home in improved and stable condition. Impression: 1. Concussion. 2. Paresthesias to arms bilaterally, uncertain cause. This note was generated with [employer] dictation software. It may contain incorrect words, spelling, and punctuation that were not noted in review of the chart prior to signing ED Disposition - Plan for ED Patient: Disposition: Home or Assisted Living Instructions: ED Concussion Referrals: Ronnie Oliver DO [NON CLINICAL AFFILIATE] - 1 Week
[2020-09-23 22:14] VITALS: RESP 16
[2020-09-23 22:30] VITALS: PULSE 85; RESP 18; O2SAT 97
== END 2020-09-23 22:31 | disposition home or self-care (01) ==
LOC: ED 20:54
PROVIDERS: Emergency Provider Emergency Medicine
DX: S06.0X0A Concussion without loss of consciousness, initial encounter (principal); R20.2 Paresthesia of skin; M54.2 Cervicalgia; W18.2XXA Fall in (into) shower or empty bathtub, initial encounter; Y93.E1 Activity, personal bathing and showering; Y92.9 Unspecified place or not applicable; Y99.9 Unspecified external cause status; Z72.0 Tobacco use
CPT/HCPCS: 70450; 71045; 72125; 73030; 80048; 84703; 85025; 96360; 96361; 99283; J7030

== ENCOUNTER 2021-07-07 21:09 | Emergency (ER) | payer MEDICAID, SELFPAY ==
[2021-07-07 21:09] VITALS: BP 123/80; PULSE 86; RESP 24; TEMP 36.5; O2SAT 100; BMI 25.4
[2021-07-07 21:15] VITALS: O2SAT 100
--- NOTE | 2021-07-07 21:24 | EDS_ITS ---
HPI HPI - URI History of Present Illness Chief Complaint: Shortness of Breath Narrative Narrative: 30-year-old female presenting with 2 hours of shortness of breath. She states she had a sore throat this morning and she was taking a nap when somebody woke her up from sleep and told her reading was abnormal. Patient does not have a fever. She is not coughing. Patient has a history of smoking but has no history of asthma or COPD. She states that she has no medical problems. Patient states that around 4:00 today she found out that her brother had COVID- 19 and she was around him at [facility]. A couple hours after this is when she started having symptoms. Patient's significant other states that she was in the bathtub and was too weak to get out of the tub and she had to wrap her arms around his neck and he had to pull her from the bathtub. She was able to ambulate into the ER on her own strength. ROS ROS ED Constitutional Constitutional ED: Denies chills or fever(s) Eyes Eyes: Denies blurry vision or change in vision ENT ENT ED: Reports sore throat; Denies rhinorrhea Cardiovascular Cardiovascular: Denies chest pain or palpitations Respiratory/Chest Respiratory/Chest: Reports dyspnea; Denies cough or sputum Gastrointestinal Gastrointestinal: Denies abdominal pain or nausea Genitourinary Genitourinary ED: Denies dysuria or hematuria Musculoskeletal Musculoskeletal: Denies arthralgias or myalgias Integumentary Denies rash Neurologic Neurologic: Denies headache(s) or paresthesias Psychiatric Psychiatric: Denies anxiety or depression PFSH PFSH Medical History no medical history Home Medications ondansetron 8 mg PO Q8H PRN PRN #20 tab 09/22/20 [Rx Last Taken Unknown] Allergy/AdvReac Type Severity Reaction Status Date / Time No Known Allergies Allergy Verified 09/23/20 20:03 Family History no significant family his Surgical History no surgical history Social History Smoking Status: Current every day smoker tobacco type: cigarettes EXAM Physical Exam Const Vital Signs: 07/07/21 21:09 07/07/21 21:15 Temperature 97.7 F L Temperature Source Oral Pulse Rate 86 Respiratory Rate 24 H Respiratory Effort Short of Breath Labored Respiratory Depth Shallow Respiratory Pattern Tachypnea Blood Pressure 123/80 H Blood Pressure Mean 94 Pulse Ox 100 Oxygen Delivery Method Room Air Room Air Positive obese General Appearance ED: NAD; Negative for pallor Nutritional Appearance: obese HEENT normocephalic and atraumatic Eyes PERRL and EOMs intact bilaterally Neck no lymphadenopathy, supple and no meningeal signs Neck Narrative: Patient audibly making a sound similar to stridor prior to examination however when I auscultated her throat she is able to control this and has no stridor on examination and I can hear good air movement. Resp normal respiratory effort and clear to auscultation bilaterally Auscultation: Negative for rales, rhonchi or wheezes Cardio Rate: Negative for regular rate Rhythm: Negative for regular rhythm GI non-tender and non-distended Palpation: soft Psych mental status grossly normal Skin General Skin Exam: Negative for jaundice or pallor MDM MDM MDM Narrative Medical decision making narrative: Patient presenting with sore throat, and dyspnea. She does not have associated cough. She does have fatigue. It was reported to me that her significant other had to pull her out of the bathtub because she was too weak to get out on her own strength, however she was able to ambulate into the emergency room without any difficulty. On examination she appears to have stridor while I am interviewing her however when I auscultate her throat on examination she is able to control this and is good air movement and there is no audible stridor. Lungs are clear to auscultation bilateral. Her pulse ox is 100%. Her heart rate is 86. Blood pressure 123/80. She is slightly tachypneic at 24. I will test her for COVID-19 and obtain a chest x- ray. Patient's rapid Covid is negative. Chest x-ray on my interpretation shows no acute cardiopulmonary process and the radiologist does agree. Patient counseled that likely this is early in disease course as her own family has Covid. She is counseled that the best days to test for the fourth and fifth day. She is counseled she can do this through local pharmacies or even a primary care. She can also use the urgent care. I did correctional classification counselor her if she needed to she can come back to the emergency room. She is counseled to hydrate well. Impression: 1. Viral syndrome Lab Data Attestation: I reviewed the patient's lab results. Radiography Diagnostic Testing: Clinical Impression(s) from Imaging Studies Chest X-Ray 07/07/21 21:30 IMPRESSION: No radiographic evidence of acute cardiopulmonary disease. Electronically Signed: Pino Leonardo MD at 21:46 EST , Service support , Discharge Plan Triage Chief Complaint: Shortness of Breath ED Provider: Melchor Hernandez Dx/Rx/DC Orders Prescriptions: No Action ondansetron 4 MG tablet 8 mg PO Q8H PRN PRN (Reason: Nausea) Qty: 20 RF: 0 Primary Care Provider: Care Physician,No Primary
--- NOTE | 2021-07-07 21:30 | RAD_ITS ---
EXAM: XR CHEST, 1 VIEW CLINICAL INDICATION: cough TECHNIQUE: Frontal view of the chest. This report was created using [employer] report generation technology. COMPARISON: 09/23/2020. FINDINGS: LUNGS AND PLEURAL SPACES: Unremarkable. No consolidation or edema. No pneumothorax. No effusion. HEART: Unremarkable. Cardiac silhouette not enlarged. MEDIASTINUM: Central airways and mediastinal contour are unremarkable. BONES/JOINTS: Unremarkable. SOFT TISSUES: Unremarkable. RAD/Chest 1 View (Portable) IMPRESSION: No radiographic evidence of acute cardiopulmonary disease. Electronically Signed: Pino Leonardo MD at 21:46 EST , Service support ,
[2021-07-07 22:12] VITALS: BP 107/77; PULSE 94; RESP 22; O2SAT 99
--- NOTE | 2021-07-07 22:12 | EKG12_ITS ---
Test Reason : SOB Blood Pressure : / mmHG Vent. Rate : 086 BPM Atrial Rate : 086 BPM P-R Int : 112 ms QRS Dur : 094 ms QT Int : 364 ms P-R-T Axes : 051 083 050 degrees QTc Int : 435 ms Normal ECG No previous ECGs available Confirmed by HECTOR REYES, DARRYL ([id number]), primer expeditor and drier RACQUEL BEGUM ([id number]) on 07/12/2021 9:38:59 AM Referred By: DAWN Confirmed By:MARYBEL YOUNG MD
[2021-07-07 22:58] VITALS: BP 107/70; PULSE 88; RESP 16
== END 2021-07-07 22:59 | disposition home or self-care (01) ==
PROVIDERS: Emergency Provider Student in an Organized Health Care Education/Training Program
DX: B34.9 Viral infection, unspecified (principal); Z20.822 Contact with and (suspected) exposure to COVID-19; R06.1 Stridor; J02.9 Acute pharyngitis, unspecified; R06.00 Dyspnea, unspecified; F17.210 Nicotine dependence, cigarettes, uncomplicated
CPT/HCPCS: 71045; 87426; 93005; 99282